=== PATIENT | male | born 1945 | race Caucasian/White ===

== ENCOUNTER → 2017-03-20 | Outpatient (CLI) | payer MEDICARE, BC | END | disposition home or self-care (01) | LOC: RAD 10:42 | PROVIDERS: ATTEND Internal Medicine Pulmonary Disease | DX: R91.1 Solitary pulmonary nodule (principal); I25.10 Atherosclerotic heart disease of native coronary artery without angina pectoris; M51.34 Other intervertebral disc degeneration, thoracic region | CPT/HCPCS: 71250 ==

== ENCOUNTER → 2017-04-17 | Outpatient (CLI) | payer MEDICARE, BC ==
[~2017-04-17] MED LIST: REGADENOSON 0.4 MG/5 ML SYRINGE ONE
== END | disposition home or self-care (01) ==
LOC: CFH 12:26
PROVIDERS: ATTEND Internal Medicine Cardiovascular Disease
DX: I10 Essential (primary) hypertension (principal); Z98.61 Coronary angioplasty status
CPT/HCPCS: 78452; 93017; A9502; J2785

== ENCOUNTER → 2018-04-26 | Outpatient (CLI) | payer MEDICARE, BC | END | disposition home or self-care (01) | LOC: CFH 08:05 | PROVIDERS: ATTEND Internal Medicine Cardiovascular Disease | DX: I25.9 Chronic ischemic heart disease, unspecified (principal); I21.9 Acute myocardial infarction, unspecified; I10 Essential (primary) hypertension; Z98.61 Coronary angioplasty status | CPT/HCPCS: 78452; 93017; A9502; J2785 ==

== ENCOUNTER → 2018-05-28 | Outpatient (CLI) | payer MEDICARE, BC | END | disposition home or self-care (01) | LOC: CFH 09:16 | PROVIDERS: ATTEND Internal Medicine Cardiovascular Disease | DX: R91.1 Solitary pulmonary nodule (principal); I25.10 Atherosclerotic heart disease of native coronary artery without angina pectoris; K80.20 Calculus of gallbladder without cholecystitis without obstruction | CPT/HCPCS: 71250 ==

== ENCOUNTER → 2018-10-11 | Outpatient (CLI) | payer MEDICARE, BC ==
[~2018-10-11] MED LIST changes: +OMNIPAQUE 350 MG/ML, 75ML BOTTLE ONE; -REGADENOSON 0.4 MG/5 ML SYRINGE ONE
== END | disposition home or self-care (01) ==
LOC: CFH 08:09
PROVIDERS: ATTEND Nurse Practitioner Family
DX: R91.1 Solitary pulmonary nodule (principal)
CPT/HCPCS: 71260; Q9967

== ENCOUNTER → 2019-02-06 | Outpatient (CLI) | payer MEDICARE, BC | END | disposition home or self-care (01) | LOC: PETCFH 01-30 07:32 | PROVIDERS: ATTEND Family Medicine | DX: R91.1 Solitary pulmonary nodule (principal); K80.20 Calculus of gallbladder without cholecystitis without obstruction; M47.816 Spondylosis without myelopathy or radiculopathy, lumbar region; I25.10 Atherosclerotic heart disease of native coronary artery without angina pectoris | CPT/HCPCS: 78815; A9552 ==

== ENCOUNTER → 2019-02-07 | Outpatient (CLI) | payer MEDICARE, BC ==
[~2019-02-07] MED LIST changes: -OMNIPAQUE 350 MG/ML, 75ML BOTTLE ONE; +REGADENOSON 0.4 MG/5 ML SYRINGE ONE
== END | disposition home or self-care (01) ==
LOC: CFH 08:20
PROVIDERS: ATTEND Internal Medicine Cardiovascular Disease
DX: I25.9 Chronic ischemic heart disease, unspecified (principal); I25.10 Atherosclerotic heart disease of native coronary artery without angina pectoris
CPT/HCPCS: 78452; 93017; A9502; J2785

== ENCOUNTER 2019-02-20 12:29 | Outpatient (CLI) | payer MEDICARE, BC ==
[2019-03-04] MEDS ORDERED: ASPI81TA45 PO (11:13)
[2019-03-04] MEDS ORDERED: HYDR-3622 PO (11:13)
[2019-03-04] MEDS ORDERED: LOSA100T14 PO (11:13)
[2019-03-04] MEDS ORDERED: NITR0.4T SL (11:13)
[2019-03-04] MEDS ORDERED: GABA300C10 PO (11:13)
[2019-03-04] MEDS ORDERED: ATOR40TA78 PO (11:13)
[2019-03-04] MEDS ORDERED: META400T PO (11:13)
[2019-03-04] MEDS ORDERED: FAMO20TA7 PO (11:13)
[2019-03-04] MEDS ORDERED: HYDR-3652 PO (11:13)
[2019-03-04] MEDS ORDERED: ASCO500T8 PO (11:13)
[2019-03-04] MEDS ORDERED: TRAM50TA2 PO (11:13)
== END 2019-02-20 23:59 | disposition home or self-care (01) ==
LOC: CARD 12:29
PROVIDERS: ATTEND Thoracic Surgery (Cardiothoracic Vascular Surgery)
DX: D38.1 Neoplasm of uncertain behavior of trachea, bronchus and lung (principal)
CPT/HCPCS: 94060; 94726; 94729

== ENCOUNTER → 2019-03-04 | Outpatient (CLI) | payer MEDICARE, BC ==
[~2019-03-04] MED LIST changes: +ASCO500T8 PO; +ASPI81TA45 PO; +ATOR40TA78 PO; +FAMO20TA7 PO; +GABA300C10 PO; +HYDR-3622 PO; +HYDR-3652 PO; +LOSA100T14 PO; +META400T PO; +NITR0.4T SL; -REGADENOSON 0.4 MG/5 ML SYRINGE ONE; +TRAM50TA2 PO
[2019-03-04 11:22] LABS: BASOPHILS # (AUTO) 0.06 x10^3/uL (0-0.1); BASOPHILS % (AUTO) 1 % (0-1); EOSINOPHILS # (AUTO) 0.23 x10^3/uL (0-0.4); EOSINOPHILS % (AUTO) 3 % (1-7); LYMPHOCYTES # (AUTO) 2.01 x10^3/uL (1-3.4); LYMPHOCYTES % (AUTO) 27 % (22-44); MD NO; MEAN CORPUSCULAR HEMOGLOBIN 29.2 pg (27.5-34.5); MEAN CORPUSCULAR HGB CONC 33.5 g/dL (33.2-36.2); MEAN CORPUSCULAR VOLUME 87.2 fL (81-97); MEAN PLATELET VOLUME 7.9 fL (7.4-10.4); MONOCYTES # (AUTO) 0.76 x10^3/uL (0.2-0.8); MONOCYTES % (AUTO) 10 % (2-9); NEUTROPHILS # (AUTO) 4.44 x10^3/uL (1.8-6.8); NEUTROPHILS % (AUTO) 59 % (42-75); PLATELET COUNT 210 x10^3/uL (130-400); RED CELL DISTRIBUTION WIDTH 15.8 % (9.4-14.8)
[2019-03-04 11:31] LABS: ALBUMIN 3.8 g/dL (3.4-5.0); ANION GAP 4 mmol/L (5-15); CALCIUM 9.4 mg/dL (8.5-10.1); CHLORIDE 109 mmol/L (98-107)
[2019-03-04 11:36] LABS: ALANINE AMINOTRANSFERASE 24 U/L (12-78); ALKALINE PHOSPHATASE 92 U/L (45-117); BILIRUBIN,TOTAL 0.7 mg/dL (0.2-1.0); CREATININE 0.93 mg/dL (0.7-1.3); TOTAL PROTEIN 7.3 g/dL (6.4-8.2)
== END | disposition home or self-care (01) ==
LOC: STAR 10:09
PROVIDERS: ATTEND Thoracic Surgery (Cardiothoracic Vascular Surgery)
DX: Z01.818 Encounter for other preprocedural examination (principal)
CPT/HCPCS: 36415; 80053; 85025; 93005

== ENCOUNTER 2019-03-13 06:18 | Inpatient (IN) | payer MEDICARE, BC ==
[2019-03-04 10:40] VITALS: BP 119/74
[~2019-03-13] VITALS: Ht 180.3 cm; Wt 108.0 kg
[2019-03-13] MEDS ORDERED: LACTATED RINGERS 1,000 ML IV SCH ×2 (06:37→09:10)
[2019-03-13] MEDS ORDERED: EPINEPHRINE 1 MG/ML, 1ML ONE (06:56)
[2019-03-13] MEDS ORDERED: BUPIVACAINE/PF 0.5% ONE (06:56)
[2019-03-13] MEDS ORDERED: ALBUTEROL (06:57)
[2019-03-13] MEDS ORDERED: ALLEREST PO (06:57)
[2019-03-13] MEDS ORDERED: ALBUTEROL IH (06:59)
[2019-03-13] MEDS ORDERED: FENTANYL PF 250 MCG/5ML ONE (06:59)
[2019-03-13] MEDS ORDERED: MIDAZOLAM 1 MG/ML, 2ML ONE (06:59)
[2019-03-13] MEDS ORDERED: OxyconTIN ER 20 MG TAB.ER PO ONE (07:00)
[2019-03-13] MEDS ORDERED: ACETAMINOPHEN 500 MG TABLET PO ONE (07:00)
[2019-03-13] MEDS ORDERED: PROMETHAZINE 25 MG/ML, 1ML IV PRN (07:30)
[2019-03-13] MEDS ORDERED: LABETALOL 5MG/ML, 20ML IV PRN (07:30)
[2019-03-13] MEDS ORDERED: hydrALAzine 20 MG/ML, 1ML IV PRN (07:30)
[2019-03-13] MEDS ORDERED: OXYcodone 5 MG/5 ML ORAL.SOL UDC PO PRN (07:30)
[2019-03-13] MEDS ORDERED: ONDANSETRON 2MG/ML, 2ML IV PRN (07:30)
[2019-03-13] MEDS ORDERED: HYDROmorphone 2 MG/ML, 1ML IVPush PRN ×2 (07:30→09:30)
[2019-03-13] MEDS ORDERED: ONDANSETRON 2MG/ML, 2ML ONE (07:31)
[2019-03-13] MEDS ORDERED: CEFAZOLIN 1,000 MG ONE ×2 (07:43)
[2019-03-13] MEDS ORDERED: DEXAMETHASONE 4 MG/ML, 1ML ONE (07:44)
[2019-03-13] MEDS ORDERED: PROPOFOL 10 MG/ML, 20ML ONE (08:07)
[2019-03-13] MEDS ORDERED: SUCCINYLCHOLINE 20 MG/ML, 10ML ONE (08:07)
[2019-03-13] MEDS ORDERED: PHENYLEPHRINE 10 MG/ML ONE (08:07)
[2019-03-13] MEDS ORDERED: ROCURONIUM 10MG/ML,5ML ONE (08:07)
[2019-03-13] MEDS: ENOXAPARIN 40 MG/0.4 ML SQ SCH (09:30)
[2019-03-13] MEDS ORDERED: ACETAMINOPHEN 325 MG TABLET PO PRN (09:30)
[2019-03-13] MEDS ORDERED: FAMOTIDINE 20 MG TABLET PO ONE (09:30)
[2019-03-13] MEDS ORDERED: hydrALAzine 20 MG/ML, 1ML IVPush PRN (09:30)
[2019-03-13] MEDS ORDERED: ENALAPRILAT 1.25 MG/ML, 2ML IVPush PRN (09:30)
[2019-03-13] MEDS ORDERED: ONDANSETRON 2MG/ML, 2ML IVPush PRN (09:30)
[2019-03-13] MEDS ORDERED: DIPHENHYDRAMINE 25 MG CAPSULE PO PRN (09:30)
[2019-03-13] MEDS ORDERED: NITROGLYCERIN 0.4 MG BOTTLE (25 TABS) SL ONE (09:30)
[2019-03-13] MEDS ORDERED: LORazepam 1MG TABLET PO PRN (09:30)
[2019-03-13] MEDS ORDERED: OXYcodone IR 5MG TABLET PO PRN (09:30)
[2019-03-13] MEDS ORDERED: METAXALONE HOMEMEDPO SCH (09:30)
[2019-03-13] MEDS ORDERED: FENTANYL PF 100 MCG/2ML ONE (09:53)
[2019-03-13] MEDS: FENTANYL PF 100 MCG/2ML IV PRN ×3 (09:55→10:45)
[2019-03-13] MEDS ORDERED: HYDROcodone/APAP 5/325 TABLET ONE (13:24)
[2019-03-13] MEDS: HYDROcodone/APAP 5/325 TABLET PO PRN ×3 (13:29→22:07)
[2019-03-13] MEDS ORDERED: FAMOTIDINE 20 MG TABLET ONE (16:08)
[2019-03-13] MEDS: GABAPENTIN 300 MG CAPSULE PO SCH ×2 (16:10→20:34)
[2019-03-13 16:29] VITALS: BP 119/87
[2019-03-13 19:38] VITALS: BP 105/55
[2019-03-13] MEDS: ATORVASTATIN 40 MG TABLET PO SCH (20:34)
[2019-03-13] MEDS: ALBUTEROL SULFATE 2.5 MG/3 ML NPPB PRN (23:58)
[2019-03-14] VITALS (7 sets, daily range): BP systolic 95–121; BP diastolic 45–63
[2019-03-14] MEDS: HYDROcodone/APAP 5/325 TABLET PO PRN ×2 (02:02→07:43)
[2019-03-14] MEDS: ALBUTEROL SULFATE 2.5 MG/3 ML NPPB PRN (02:44)
[2019-03-14 05:35] LABS: BASOPHILS # (AUTO) 0.02 x10^3/uL (0-0.1); BASOPHILS % (AUTO) 0 % (0-1); EOSINOPHILS # (AUTO) 0.05 x10^3/uL (0-0.4); EOSINOPHILS % (AUTO) 1 % (1-7); LYMPHOCYTES # (AUTO) 1.58 x10^3/uL (1-3.4); LYMPHOCYTES % (AUTO) 20 % (22-44); MD NO; MEAN CORPUSCULAR HGB CONC 32.9 g/dL (33.2-36.2); MEAN CORPUSCULAR VOLUME 88.1 fL (81-97); MEAN PLATELET VOLUME 8.2 fL (7.4-10.4); MONOCYTES # (AUTO) 0.87 x10^3/uL (0.2-0.8); MONOCYTES % (AUTO) 11 % (2-9); NEUTROPHILS # (AUTO) 5.48 x10^3/uL (1.8-6.8); NEUTROPHILS % (AUTO) 69 % (42-75); PLATELET COUNT 197 x10^3/uL (130-400); RED BLOOD COUNT 4.31 x10^6/uL (4.38-5.82); RED CELL DISTRIBUTION WIDTH 15.5 % (9.4-14.8)
[2019-03-14 05:48] LABS: CHLORIDE 107 mmol/L (98-107)
[2019-03-14 05:59] LABS: ANION GAP 6 mmol/L (5-15); CALCIUM 8.9 mg/dL (8.5-10.1); CREATININE 1.02 mg/dL (0.7-1.3)
[2019-03-14] MEDS: LOSARTAN 50MG TABLET PO SCH (07:42)
[2019-03-14] MEDS: GABAPENTIN 300 MG CAPSULE PO SCH ×3 (07:42→20:06)
[2019-03-14] MEDS: ENOXAPARIN 40 MG/0.4 ML SQ SCH (07:43)
[2019-03-14] MEDS: ALLEREST PO SCH (09:00)
[2019-03-14] MEDS: ATORVASTATIN 40 MG TABLET PO SCH (20:06)
[2019-03-15 01:24] VITALS: BP 101/62
[2019-03-15 07:47] VITALS: BP 110/66
[2019-03-15] MEDS: LOSARTAN 50MG TABLET PO SCH (07:51)
[2019-03-15] MEDS: ENOXAPARIN 40 MG/0.4 ML SQ SCH (07:51)
[2019-03-15] MEDS: ALLEREST PO SCH (07:51)
[2019-03-15] MEDS: GABAPENTIN 300 MG CAPSULE PO SCH (07:51)
[2019-03-15] MEDS ORDERED: HYDR-3240 PO (08:41)
[2019-03-15 11:10] VITALS: BP 111/69
== END 2019-03-15 11:53 | disposition home or self-care (01) | DRG 163 ==
LOC: ORIP 06:18 → 4NOR 12:37 → DCLOUNGE 03-15 11:37
PROVIDERS: ADMIT Thoracic Surgery (Cardiothoracic Vascular Surgery); ATTEND Thoracic Surgery (Cardiothoracic Vascular Surgery)
PROC: 0BBG4ZZ Excision of Left Upper Lung Lobe, Percutaneous Endoscopic Approach (ICD-10-PCS; principal; 2019-03-13 07:30)
DX: C34.12 Malignant neoplasm of upper lobe, left bronchus or lung (principal); J96.20 Acute and chronic respiratory failure, unspecified whether with hypoxia or hypercapnia; E44.1 Mild protein-calorie malnutrition; M19.90 Unspecified osteoarthritis, unspecified site; N40.0 Benign prostatic hyperplasia without lower urinary tract symptoms; I25.10 Atherosclerotic heart disease of native coronary artery without angina pectoris; G89.4 Chronic pain syndrome; Q15.0 Congenital glaucoma; K21.9 Gastro-esophageal reflux disease without esophagitis; E78.00 Pure hypercholesterolemia, unspecified; I10 Essential (primary) hypertension; I25.2 Old myocardial infarction; G62.9 Polyneuropathy, unspecified; Z79.82 Long term (current) use of aspirin; Z80.9 Family history of malignant neoplasm, unspecified; Z82.49 Family history of ischemic heart disease and other diseases of the circulatory system; Z87.891 Personal history of nicotine dependence; Z68.33 Body mass index [BMI] 33.0-33.9, adult
CPT/HCPCS: 36415; 71045; 80048; 85025; 86850; 86900; 86923; 88309; 88329; 88341; 88342; 94640; C1729; G0378; J0171; J0690; J1100; J1650; J2250; J2405; J2704; J3010; J7613; C1760; J0330; J2370; J7120

== ENCOUNTER 2019-03-31 10:38 | Emergency (ER) | payer MEDICARE, BC ==
[~2019-03-31] VITALS: Ht 180.3 cm; Wt 103.0 kg
[~2019-03-31 10:38] MED LIST changes: +ALBUTEROL; +ALBUTEROL IH; +ALLEREST PO; +HYDR-3240 PO
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
--- NOTE | 2019-03-31 11:12 | NUR ---
CHART REVIEW STUDENTS NOTES
[2019-03-31] MEDS ORDERED: ASPIRIN 81 MG TABLET CHEW ONE (11:13)
[2019-03-31] MEDS ORDERED: SODIUM CHLORIDE FLUSH 10ML SYR IVF ONE (11:30)
[2019-03-31] MEDS ORDERED: ASPIRIN 81 MG TABLET CHEW PO ONE (11:30)
[2019-03-31 11:42] LABS: BASOPHILS # (AUTO) 0.03 x10^3/uL (0-0.1); BASOPHILS % (AUTO) 0 % (0-1); EOSINOPHILS # (AUTO) 0.13 x10^3/uL (0-0.4); EOSINOPHILS % (AUTO) 2 % (1-7); LYMPHOCYTES # (AUTO) 1.54 x10^3/uL (1-3.4); LYMPHOCYTES % (AUTO) 20 % (22-44); MD NO; MEAN CORPUSCULAR HEMOGLOBIN 29.6 pg (27.5-34.5); MEAN CORPUSCULAR HGB CONC 34.2 g/dL (33.2-36.2); MEAN CORPUSCULAR VOLUME 86.6 fL (81-97); MEAN PLATELET VOLUME 8.4 fL (7.4-10.4); MONOCYTES # (AUTO) 0.74 x10^3/uL (0.2-0.8); MONOCYTES % (AUTO) 10 % (2-9); NEUTROPHILS # (AUTO) 5.14 x10^3/uL (1.8-6.8); NEUTROPHILS % (AUTO) 68 % (42-75); PLATELET COUNT 247 x10^3/uL (130-400); RED BLOOD COUNT 5.06 x10^6/uL (4.38-5.82); RED CELL DISTRIBUTION WIDTH 15.1 % (9.4-14.8)
[2019-03-31 11:54] LABS: ALBUMIN 3.6 g/dL (3.4-5.0); ANION GAP 7 mmol/L (5-15); CALCIUM 8.8 mg/dL (8.5-10.1); CHLORIDE 107 mmol/L (98-107); CREATININE 1.82 mg/dL (0.7-1.3)
[2019-03-31 11:58] LABS: TROPONIN I < 0.015 ng/mL (0.000-0.045)
--- NOTE | 2019-03-31 12:43 | NUR ---
PT UP TO BATHROOM, GAIT SLOW AND STEADY, DENIES ANY OTHER NEEDS AT THIS TIME
[2019-03-31] MEDS ORDERED: SODIUM CHLORIDE 0.9% 1,000ML IVBOLUS ONE (13:30)
--- NOTE | 2019-03-31 13:40 | NUR ---
PT TO CT VIA [facility]
--- NOTE | 2019-03-31 14:23 | NUR ---
BACK FROM CT SCAN, UP TO BATHROOM, SBA. VERBALIZED NO OTHER NEEDS
[2019-03-31 15:39] VITALS: BP 117/60
--- NOTE | 2019-03-31 15:39 | NUR ---
Patient/Caregiver given discharge instructions and they have confirmed that they understand the instructions. Patient ambulatory with steady gait.
== END 2019-03-31 15:41 | disposition home or self-care (01) ==
LOC: ED 11:29
DX: R07.89 Other chest pain (principal); J44.9 Chronic obstructive pulmonary disease, unspecified; I10 Essential (primary) hypertension; I25.10 Atherosclerotic heart disease of native coronary artery without angina pectoris; Z87.891 Personal history of nicotine dependence; Z88.8 Allergy status to other drugs, medicaments and biological substances
CPT/HCPCS: 36415; 71046; 71250; 80048; 82040; 83880; 84484; 85025; 93005; 99284; J7030

== ENCOUNTER 2019-04-10 09:42 | Day surgery (SDC) | payer MEDICARE, BC ==
[~2019-04-10] VITALS: Ht 180.3 cm; Wt 103.9 kg
[~2019-04-10 09:42] MED LIST changes: +BUPIVACAINE/PF-EPI 0.5% 1:200K ONE; -NITR0.4T SL; +NITR0.4T41 SL; +ROCURONIUM 10 MG/ML,10ML ONE
[2019-04-10] MEDS ORDERED: ACETAMINOPHEN 500 MG TABLET PO ONE (10:30)
[2019-04-10] MEDS ORDERED: SCOPOLAMINE PATCH, 1.5MG PATCH.TD72 TD ONE (10:30)
[2019-04-10] MEDS ORDERED: GABAPENTIN 300 MG CAPSULE PO ONE (10:30)
[2019-04-10] MEDS ORDERED: LACTATED RINGERS 1,000 ML IV SCH ×2 (10:31→12:39)
[2019-04-10 10:32] VITALS: BP 97/57
[2019-04-10] MEDS ORDERED: TRIA50CA PO (11:01)
[2019-04-10] MEDS ORDERED: TRIA1CAP3 PO (11:12)
[2019-04-10] MEDS ORDERED: FENTANYL PF 250 MCG/5ML ONE (11:19)
[2019-04-10] MEDS ORDERED: MIDAZOLAM 1 MG/ML, 2ML ONE (11:19)
[2019-04-10] MEDS ORDERED: HEPARIN 1,000 UNITS/ML, 10ML ONE (11:25)
[2019-04-10] MEDS ORDERED: PROPOFOL 50 ML ONE (11:36)
[2019-04-10] MEDS ORDERED: EPHEDRINE 50 MG/ML, 1ML IVPush PRN ×2 (12:00→13:30)
[2019-04-10] MEDS ORDERED: METOPROLOL 1 MG/ML, 5ML IV PRN (12:00)
[2019-04-10] MEDS ORDERED: EPHEDRINE 50 MG/ML, 1ML IM PRN (12:00)
[2019-04-10] MEDS ORDERED: MEPERIDINE/PF 25MG/0.5ML IVPush PRN (12:00)
[2019-04-10] MEDS ORDERED: PROMETHAZINE 25 MG SUPP PR PRN (12:00)
[2019-04-10] MEDS ORDERED: MIDAZOLAM 1 MG/ML, 2ML IV PRN (12:00)
[2019-04-10] MEDS ORDERED: hydrALAzine 20 MG/ML, 1ML IV PRN (12:00)
[2019-04-10] MEDS ORDERED: FENTANYL PF 100 MCG/2ML IV PRN (12:00)
[2019-04-10] MEDS ORDERED: ONDANSETRON ODT 8 MG PO PRN (12:00)
[2019-04-10] MEDS ORDERED: DIAZEPAM 5 MG/ML, 2ML IVPush PRN (12:00)
[2019-04-10] MEDS ORDERED: HYDROcodone/APAP 7.5-325MG/15ML UDC PO PRN (12:00)
[2019-04-10] MEDS ORDERED: ONDANSETRON 2MG/ML, 2ML IV PRN (12:00)
[2019-04-10] MEDS ORDERED: DIPHENHYDRAMINE 50 MG/ML, 1ML IVPush PRN (12:00)
[2019-04-10] MEDS ORDERED: MORPHINE SULFATE 4 MG/ML, 1ML IVPush PRN (12:00)
[2019-04-10] MEDS ORDERED: PROMETHAZINE 12.5 MG SUPP PR PRN (12:00)
[2019-04-10] MEDS ORDERED: PROMETHAZINE 25 MG/ML, 1ML IV PRN (12:00)
[2019-04-10] MEDS ORDERED: CEFAZOLIN 1,000 MG ONE ×2 (12:21)
[2019-04-10] MEDS ORDERED: ONDANSETRON 2MG/ML, 2ML ONE (12:21)
[2019-04-10] MEDS ORDERED: DEXAMETHASONE 4 MG/ML, 1ML ONE (12:21)
[2019-04-10] MEDS ORDERED: SUCCINYLCHOLINE 20 MG/ML, 10ML ONE (12:21)
[2019-04-10] MEDS ORDERED: GLYCOPYRROLATE 0.4 MG/2 ML, 2ML ONE (12:29)
[2019-04-10] MEDS ORDERED: HYDROcodone/APAP 5/325 TABLET PO PRN (13:00)
[2019-04-10] MEDS ORDERED: ONDANSETRON 2MG/ML, 2ML IVPush PRN (13:00)
[2019-04-10] MEDS ORDERED: morphine SULFATE 10 MG/ML, 1ML IVPush PRN (13:00)
[2019-04-10] MEDS ORDERED: EPHEDRINE 50 MG/ML, 1ML ONE (13:02)
[2019-04-10] MEDS ORDERED: HYDROcodone/APAP 7.5-325MG/15ML UDC ONE (13:18)
== END 2019-04-10 16:00 | disposition home or self-care (01) ==
LOC: OUT 09:42 → UNDOADMOB 12:39 → ORIP 12:39
PROVIDERS: ATTEND Thoracic Surgery (Cardiothoracic Vascular Surgery)
DX: Z45.2 Encounter for adjustment and management of vascular access device (principal); C34.12 Malignant neoplasm of upper lobe, left bronchus or lung; R59.1 Generalized enlarged lymph nodes; I25.10 Atherosclerotic heart disease of native coronary artery without angina pectoris; K21.9 Gastro-esophageal reflux disease without esophagitis; E78.00 Pure hypercholesterolemia, unspecified; I10 Essential (primary) hypertension; I25.2 Old myocardial infarction; Z85.118 Personal history of other malignant neoplasm of bronchus and lung; Z98.890 Other specified postprocedural states; Z79.82 Long term (current) use of aspirin; Z72.89 Other problems related to lifestyle; Z87.891 Personal history of nicotine dependence
CPT/HCPCS: 36561; 39402; 77001; 88305; 88342; C1788; J0330; J0690; J1100; J1644; J2250; J2405; J2704; J3010; J7120

== ENCOUNTER → 2020-01-24 | Outpatient (CLI) | payer MEDICARE, BC ==
[~2020-01-24] MED LIST changes: +ACET325T26 PO; -BUPIVACAINE/PF-EPI 0.5% 1:200K ONE; +CALC200T24 PO; +CETI10TA18 PO; +DICL100G19 TP; +FLUO10CA14 PO; +HEPA50002 SQ; +OMNIPAQUE 350 MG/ML, 100ML BOTTLE ONE; +ONDA8TAB16 SL; -ROCURONIUM 10 MG/ML,10ML ONE; +TAMS-11 PO; +TIZA4CAP PO; +TRIA1CAP3 PO; +TRIA50CA PO
== END | disposition home or self-care (01) ==
LOC: CFH 13:13
PROVIDERS: ATTEND Specialist
DX: C34.12 Malignant neoplasm of upper lobe, left bronchus or lung (principal); K76.0 Fatty (change of) liver, not elsewhere classified; K80.20 Calculus of gallbladder without cholecystitis without obstruction; I25.10 Atherosclerotic heart disease of native coronary artery without angina pectoris; K76.89 Other specified diseases of liver; I70.0 Atherosclerosis of aorta; J47.9 Bronchiectasis, uncomplicated; R91.1 Solitary pulmonary nodule
CPT/HCPCS: 71260; 74160; Q9967

== ENCOUNTER → 2020-06-18 | Outpatient (CLI) | payer MEDICARE, BC ==
[~2020-06-18] MED LIST changes: +ALPRazolam 1MG TAB ONE; -OMNIPAQUE 350 MG/ML, 100ML BOTTLE ONE
== END | disposition home or self-care (01) ==
LOC: SMMGROBB 06-05 06:56 → EDSTATUS 06-05 07:15 → RAD 12:19 → EDSTATUS 12:45
PROVIDERS: ATTEND Nurse Practitioner Family
DX: G31.84 Mild cognitive impairment of uncertain or unknown etiology (principal); R27.0 Ataxia, unspecified; R90.82 White matter disease, unspecified
CPT/HCPCS: 70551

== ENCOUNTER → 2020-06-30 | Outpatient (CLI) | payer MEDICARE, BC ==
[~2020-06-30] MED LIST changes: -ALPRazolam 1MG TAB ONE; +OMNIPAQUE 350 MG/ML, 100ML BOTTLE ONE
== END | disposition home or self-care (01) ==
LOC: CFH 10:54
PROVIDERS: ATTEND Specialist
DX: C34.12 Malignant neoplasm of upper lobe, left bronchus or lung (principal); J84.10 Pulmonary fibrosis, unspecified; R91.1 Solitary pulmonary nodule; K80.20 Calculus of gallbladder without cholecystitis without obstruction
CPT/HCPCS: 71260; 74160; Q9967